=== PATIENT | female | born 1965 ===

== ENCOUNTER 2021-05-29 10:46 | Emergency (ER) | payer OTHER ==
[~2021-05-29] VITALS: Ht 154.9 cm; Wt 58.5 kg
[2021-05-29] MEDS ORDERED: ORPHENADRINE C100 MG PO (16:15)
[2021-05-29] MEDS ORDERED: SKELAGESIC PO (16:15)
== END 2021-05-29 16:22 ==
LOC: ER 10:46
DX: M54.12 Radiculopathy, cervical region (principal); G43.909 Migraine, unspecified, not intractable, without status migrainosus